=== PATIENT | male | born 2000 | race Caucasian/White ===

== ENCOUNTER 2024-08-03 18:40 | Emergency (ER) | payer OTHER, SELFPAY ==
[2024-08-03 18:42] VITALS: BP 134/89
--- NOTE | 2024-08-03 19:35 | ED.GENMED ---
History of Present Illness
General
Chief Complaint: Depression
Source: patient
Exam Limitations: none
Time Seen by Provider: 08/03/24 19:13
History of Present Illness
History of Present Illness:
This is a 24 year old male that comes in with c/o depression. States that on Sunday he awoke being very anxious and depressed. States that he had this feeling of dread. States that he felt like there was a cold hand on his chest. States that this
has continued to get worse over the past few days until today when it was debilitating. Denies any suicidal thoughts. States that he feels like he is just spaced out. Patient is taking Wellbutrin and Buspirone. States that his doses where just
increased about 2 weeks ago. States that the Wellbutrin went from 150mg to 300mg and the Buspirone went from 15 to 30mg. States that he does have an appointment with the Psychiatrist on Sunday. Denies any fever, chills, chest pain, SOB, abd
pain, nausea, vomiting, diarrhea, headache, dizziness, urinary burning.
Past History
Past History
ED Past Medical History: Psychiatric (Depression); Negative Asthma, HTN, Hypercholesterolemia or NIDDM
ED Past Surgical History: None
Social History
Tobacco: Other (Former vap)
Alcohol: None
Personal:
Living: with family
Review of Systems
Review of Systems
All Other Systems: ROS reviewed and negative except as documented in HPI and ROS
Constitutional: Reports no symptoms; Denies fever or chills
EENT: Reports no symptoms
Respiratory: Reports no symptoms; Denies cough or trouble breathing
Cardiac: Reports no symptoms; Denies chest pain
ABD/GI: Reports no symptoms; Denies abdominal pain, nausea, vomiting or diarrhea
: Reports no symptoms; Denies dysuria, frequency or urgency
Musculoskeletal: Reports no symptoms
Skin: Reports no symptoms
Neurological: Denies dizzy or headache
Psychiatric: Reports depression
Phy Exam
General Physical Exam
General Presentation: no apparent distress
General age: appears stated age
General Skin: warm and dry
General Habitus: normal
General Mental: alert
General Hydration: appears well hydrated
ENT Exam
ENT Exam: TM's normal, pharynx normal and neck supple
Eye Exam
Eye Exam: EOMI
Cardiovascular Exam
Cardiovascular Exam: regular rate/rhythm, no edema, no murmur and normal peripheral pulses
Pulmonary Exam
Pulmonary Exam: lungs clear, no respiratory distress, no rales, chest non tender, no crackles, no rhonchi, no wheezing and no cough
Gastrointestinal Exam
Gastrointestinal Exam: normal bowel sounds, non tender, soft, no organomegaly, no pulsatile mass and non distended
Musculoskeletal Exam
Musculoskeletal Exam: full ROM and no edema
Skin Exam
Skin Exam: normal color, warm/dry, no rash and no petechia
Psychiatric Exam
Psychiatric Exam: depressed
Course
Orders/Labs/Results
Orders:
Orders
08/03/24 19:34
Crisis Consult Urgent
Reason for Consult: depression
08/03/24 19:53
Complete Blood Count/With Diff Urgent
Comprehensive Metabolic Panel Urgent
08/03/24 20:52
Urine Drug Abuse Screen Urgent
Date Specimen was Collected: 08/03/24
Time Specimen was Collected: 19:48
08/03/24 21:46
Lorazepam [Ativan] 1 mg PO NOW STA
Abnormal Lab Results
08/03/24
19:53
Monocytes % 10.0 H %
(1.7-9.3)
BUN 22 H mg/dl
(9-20)
Albumin 5.1 H g/dl
(3.5-5.0)
08/03/24 19:53
08/03/24 19:53
Vital Signs
Initial and Last Documented VS:
Initial Vital Signs
Temp Pulse Resp BP Pulse Ox
99.7 F 85 18 134/89 97
08/03/24 18:42 08/03/24 18:42 08/03/24 18:42 08/03/24 18:42 08/03/24 18:42
Last Documented Vital Signs
Temp Pulse Resp BP Pulse Ox
99.7 F 85 18 134/89 97
08/03/24 18:42 08/03/24 18:42 08/03/24 18:42 08/03/24 18:42 08/03/24 18:42
MDM/Problems Addressed
Differential Diagnosis Includes:
Depression
MDM/Problems Addressed:
This is a 24 year old male that comes in with c/o depression which started on Sunday and has continued to get worse till today it was debilitating.
will check labs, Crisis evaluation.
Patient was seen by Crisis and patient does not want to go inpatient. States that if he could just be given something until Sunday to help his anxiety as he feels he is going to crawl out of his skin. will discharge home.
Chronic conditions affecting care: Psychiatric illness
Acute Exacerbation and/or Progression of Chronic Illness: Psychiatric illness
*Pulse Oximetry
Patient hypoxic: no
*EKG
Interpreted by ED Provider?: NA
Rate: EKG- N/A
*Acid Etch Operator Interpretation
Rate: Acid Etch Operator- N/A
*Critical Care Note
Total Time (30-74mins, 75-104mins- exclusive of procedures): Not Applicable
ED Attending Note
-
Portions of this chart may have been created with voice recognition software.� Occasional wrong word or��sound alike� substitutions may have occurred due to the inherent limitations of voice recognition software.
Discharge Plan
Departure
Patient Disposition: Home (Routine Discharge)
Date of Disposition: 08/03/24
Time of Disposition: 21:48
Patient with high blood pressure during this ER visit?: Yes
Condition: Good
Covid-19: Not Applicable
Discharge Problem:
Depression, Anxiety
Instructions: Depression, Adult (DC), Generalized Anxiety Disorder (DC), BLOOD PRESSURE
Prescriptions:
New
lorazepam [Ativan] 1 mg tablet
1 mg PO BID PRN (Reason: anxiety) Qty: 4 0RF
Referrals:
Stacey Sin, DO [Family Provider] -
Stand Alone Forms: Return to Work
Activity Restrictions/Additional Instructions:
As discussed, you have been seen by Crisis and are not interested in going inpatient for therapy. Please follow up with the Psychiatrist on Sunday as scheduled. You have had a prescription for Ativan sent to your pharmacy to help you until Sunday.
IF YOU HAVE ANY THOUGHTS OF SUICIDE OR YOU HAVE ANY OTHER CONCERNS PLEASE RETURN TO THE EMRGENCY ROOM.
Interventions
Interventions:
*Risk Screen - Suicide Last Done: 08/03/24 18:42
*General Assessment Last Done: 08/03/24 18:42
*Neglect/Abuse Screening Last Done: 08/03/24 18:42
ED- Fall Risk Assessment Last Done: 08/03/24 20:26
ED-Psychological Assessment Last Done: 08/03/24 20:26
Discharge Date and Time
Print Language: IRISH
[2024-08-03 20:04] LABS: % Basophils 0.9 % (0-2); % Eosinophils 4.5 % (0-6); % Immature Granulocytes 0.3 % (0-0.5); % Lymphocytes 35.2 % (20.5-51.1); % Neutrophils 49.1 % (42.2-75.2); Absolute Basophils 0.1 10^3/uL (0-0.2); Absolute Eosinophils 0.3 10^3/uL (0-0.7); Absolute Lymphocytes 2.3 10^3/uL (1.2-3.4); Absolute Monocytes 0.6 10^3/uL (0.1-0.6); Absolute Neutrophils 3.2 10^3/uL (1.4-6.5); Hematocrit 41.6 % (39.0-52.0); Hemoglobin 14.8 g/dL (13.0-18.0); Mean Corp Hgb Conc. 35.6 g/dL (33.0-37.0); Mean Corpuscular Hgb 30.7 pg (27.0-31.0); Mean Corpuscular Volume 86.3 fL (80.0-94.0); Mean Platelet Volume 9.3 fL (7.4-10.4); Nucleated Red Blood Cells % 0 % (-); Platelet Count 296 10^3/uL (130-400); Red Blood Cell Count 4.82 10^6/uL (4.70-6.10); Red Cell Dist. Width 12.6 % (11.5-14.5); White Blood Cell Count 6.4 10^3/uL (4.8-10.8)
[2024-08-03 20:18] LABS: ALT (SGPT) 35 U/L (0-50); AST (SGOT) 27 U/L (17-59); Albumin 5.1 g/dl (3.5-5.0); Alkaline Phosphatase 73 U/L (38-126); Blood Urea Nitrogen 22 mg/dl (9-20); Calcium 10.2 mg/dl (8.4-10.2); Carbon Dioxide 23 mmol/L (22-30); Chloride 102 mmol/L (98-107); Glucose 85 mg/dl (70-99); Potassium 4.5 mmol/L (3.5-5.1); Sodium 140 mmol/L (135-145); Total Bilirubin 0.4 mg/dl (0.2-1.3); Total Protein 7.6 g/dl (6.3-8.2); eGFR > 60.00
[2024-08-03 21:14] LABS: Amphetamines Negative (Negative); Barbiturates Negative (Negative); Benzodiazepines Negative (Negative); Buprenorphine Negative (Negative); Cocaine Negative (Negative)
[2024-08-03 21:15] LABS: Marijuana Negative (Negative); Methadone Negative (Negative); Methamphetamines Negative (Negative); Opiates Negative (Negative); Phencyclidine Negative (Negative); Tricyclic Antidepressants Negative (Negative)
[2024-08-03] MEDS: ATIVAN 1 MG PO (22:03)
== END 2024-08-03 22:09 | disposition home or self-care (01) ==
LOC: EMR 18:40
PROVIDERS: Clinical Nurse Specialist Family Health; EMERGENCY PHYSICIAN Emergency Medicine; FAMILY PHYSICIAN Family Medicine
DX: F32.A Depression, unspecified (principal); F41.9 Anxiety disorder, unspecified; R03.0 Elevated blood-pressure reading, without diagnosis of hypertension
CPT/HCPCS: 99283; 80053; 80306; 85025